=== PATIENT | male | born 1985 | race Caucasian/White ===

== ENCOUNTER 2021-02-26 20:28 | Emergency (ER) | payer BC, SELFPAY ==
--- NOTE | 2021-02-26 20:36 | ECG_ITS ---
[facility] Test Date: 2021-02-26 Pat Name: Mckinley Johns Department: Room: Gender: Male Gate Watchman: : 1985 Requested By: Cristy Pearson Order Number: [id number] Ralf MD: Mushtaq Drew M.D. Measurements Intervals [place] Rate: 57 P: 42 AR: 139 QRS: 77 QRSD: 100 T: 63 QT: 409 QTc: 399 Interpretive Statements SINUS BRADYCARDIA WITH SINUS ARRHYTHMIA POSSIBLE RIGHT VENTRICULAR CONDUCTION DELAY [RSR (QR) IN V1/V2] No previous ECG available for comparison Electronically Signed On 02-28-2021 17:13:10 CDT by Mushtaq Drew M.D. [id number]
--- NOTE | 2021-02-26 20:36 | XRR_ITS ---
PROCEDURE INFORMATION: Exam: XR Chest Exam date and time: 02/26/2021 8:36 PM Age: 35 years old Clinical indication: Sternal or substernal pain; Additional info: Chest pain TECHNIQUE: Imaging protocol: XR of the chest. Views: 1 view. COMPARISON: No relevant prior studies available. FINDINGS: Lungs: Lungs are clear bilaterally. Calcified granuloma in the the left midlung. Pleural spaces: No pleural effusion. No pneumothorax. Heart/Mediastinum: The cardiac silhouette and mediastinal contours are unremarkable. Bones/joints: Unremarkable for age. XR/XR chest 1V portable [id number] IMPRESSION: 1. No acute cardiopulmonary process. 2. Calcified granuloma in the the left midlung. Radiation Dose CTDIVOL = (mGy): DLP = (mGy-cm)
[2021-02-26 20:40] VITALS: BP 114/75; PULSE 72; RESP 20; TEMP 36.6; BMI 20.7
[2021-02-26 20:58] LABS: Basophils % 0.3 %; Eosinophils # 0.1 10^3/uL (0.0-0.8); Eosinophils % 0.6 %; Hematocrit 44.8 % (42.0-52.0); Hemoglobin 15.9 g/dL (11.7-16.6); Lymphocytes # 1.1 10^3/uL (0.8-4.8); Lymphocytes % 8.9 %; Mean Corpuscular HGB Conc 35.5 g/dL (30.0-36.0); Mean Corpuscular Hemoglobin 30.3 pg (28.0-34.0); Mean Corpuscular Volume 85.3 fl (80-94); Mean Platelet Volume 8.5 fL (7.4-10.4); Monocytes # 0.6 10^3/uL (0.2-0.9); Monocytes % 4.6 %; Neutrophils # 10.38 10^3/uL (1.8-7.7); Neutrophils % 85.3 %; Nucleated Red Blood Cells % 0 %; Platelet Count 225 10^3/cmm (130-400); Red Blood Count 5.25 10^6/uL (4.1-5.3); Red Cell Distribution Width 11.8 % (12.1-15.1); White Blood Count 12.2 10^3/uL (4.0-10.0)
--- NOTE | 2021-02-26 21:07 | W.ED.CHESTPA ---
Documented by User: LEODAN Rosa 02/26/21 22:17 HPI - Chest Pain General: Chief Complaint: Chest Pain Stated Complaint: cp Time Seen by Provider: 02/26/21 20:30 Source: patient and family () Mode of arrival: ambulatory Limitations: no limitations History of Present Illness: HPI narrative: Patient is a 35-year-old male who presents to ED today along with his for evaluation of chest pain that began around noon today. Patient states pain began gradually and reached maximum intensity at 10/10. When asked specifically where he was experiencing discomfort he points to his epigastric region. He treated with Tums and Puja-Quartzsite without relief. There was no radiation to his discomfort. He denies feeling nauseous. No episodes of vomiting. He does not complain of back pain. does state he got a little diaphoretic. No cough, SOB, or neck pain/dysphagia. states he was tearful secondary to discomfort which is extremely unlike him. Patient is an otherwise healthy male. He takes no medications. He has no family history of cardiac disease. Patient currently rating his pain at a 3/10. MD complaint: chest pain (epigastric pain) Onset (ago): hour(s) Timing of current episode: constant Prior episodes: No Pain location: epigastric Pain radiation: none Severity: severe Pain scale (0-10): 10 Relieving factors: nothing Exacerbating factors: nothing Associated symptoms: Reports abdominal pain; Deny dyspnea, fever(s), nausea, palpitations, syncope or vomiting Risk Factors: Coronary artery disease risk factors: smoking history (occasional smoker ) Thoracic aortic dissection risk factors: none Review of Systems Const: Denies: fever(s), chills, body aches, fatigue or malaise Eyes: Denies: change in vision ENMT: Denies: throat pain or odynophagia Card: Reports: chest pain and dyspnea on exertion (chronic/years); Denies: palpitations, irregular heart rhythm, edema, swelling of feet/ankles, lightheadedness, syncope, pre-syncope, orthopnea, leg pain with exertion or acrocyanosis Resp: Denies: dyspnea, productive cough, non-productive cough, wheezing, pain on inspiration, hemoptysis or chest congestion GI: Reports: abdominal pain; Denies: nausea, vomiting, diarrhea or change in bowel habits : Denies: flank pain, dysuria, urinary urgency or hematuria Musc: Denies: neck pain or back pain Skin/Breast: Denies: rash Neuro: Denies: headache(s) or dizziness Physical Exam Const: COMMON NORMALS: no acute distress, average body habitus, patient oriented x3, no limitations, healthy appearing, alert and well nourished GENERAL APPEARANCE: cooperative ORIENTATION/CONSCIOUSNESS: Yes awake, Yes oriented to person, Yes oriented to place and Yes oriented to time HENMT: COMMON NORMALS: normocephalic and atraumatic HEAD & SCALP: normal to inspection, normocephalic and atraumatic Chest: COMMONS NORMALS: normal inspection of the chest and normal palpation of entire chest wall Resp: COMMON NORMALS: normal respiratory effort and clear to auscultation bilaterally AUSCULTATION: clear to auscultation bilaterally Cardio: COMMON NORMALS: regular rate and regular rhythm RATE: regular rate RHYTHM: regular rhythm GI: COMMON NORMALS: Normal to inspection, nondistended, normoactive bowel sounds present, Soft to palpation, No hepatosplenomegaly present and no masses PALPATION: Yes Soft to palpation, Yes Tenderness to palpation present (GI) (epigastric) and Yes No hepatosplenomegaly present : COMMON NORMALS: Yes no CVA tenderness BLADDER/KIDNEY EXAM: Yes no CVA tenderness Back/Pelvis: COMMON NORMALS: no CVA tenderness, thoracic and lumbar spine normal to inspection, no thoracic nor lumbar tenderness and thoraco-lumbar ROM normal Extremity: COMMON NORMALS: normal to inspection, no joint enlargement, no clubbing, cyanosis or edema, no calf tenderness and no pedal edema Neuro: RENE COMA SCALE: document GCS findings COMMON NORMALS: patient oriented x3 SENSORIUM/ORIENTATION: Yes alert, Yes oriented to person, Yes oriented to place and Yes oriented to time Skin: COMMON NORMALS: no rashes or lesions noted GENERAL SKIN EXAM: no rashes or lesions noted Course Vital Signs: Vital signs: Vital Signs Temperature 97.9 F 02/26/21 20:40 Pulse Rate 72 02/26/21 20:40 Respiratory Rate 20 H 02/26/21 20:40 Blood Pressure 114/75 02/26/21 20:40 MDM - Chest Pain MDM Narrative: Medical decision making narrative: Care initiated. TERRY of 2 so will transfer care to Dr. Wang. Lab Data: Labs: Lab Results 02/26/21 02/26/21 02/26/21 20:53 20:53 20:53 WBC 12.2 10^3/uL H 10 ^3/uL (4.0-10.0) RBC 5.25 10^6/uL 10^6 /uL (4.1-5.3) Hgb 15.9 g/dL g/dL (11.7-16.6) Hct 44.8 % % (42.0-52.0) MCV 85.3 fl fl (80-94) MCH 30.3 pg pg (28.0-34.0) MCHC 35.5 g/dL g/dL (30.0-36.0) RDW 11.8 % L % (12.1-15.1) Plt Count 225 10^3/cmm 10^3 /cmm (130-400) MPV 8.5 fL fL (7.4-10.4) Neut % (Auto) 85.3 % % Lymph % (Auto) 8.9 % % [place] % (Auto) 4.6 % % Eos % (Auto) 0.6 % % Baso % (Auto) 0.3 % % Neut # (Auto) 10.38 10^3/uL H 1 0^3/uL (1.8-7.7) Lymph # (Auto) 1.1 10^3/uL 10^3/ uL (0.8-4.8) [place] # (Auto) 0.6 10^3/uL 10^3/ uL (0.2-0.9) Eos # (Auto) 0.1 10^3/uL 10^3/ uL (0.0-0.8) Baso # (Auto) 0.0 10^3/uL 10^3/ uL (0.0-0.1) Nucleated RBC % (a uto) 0 % % Nucleated RBCs # 0.0 /100WBC /100W BC D-Dimer Sodium 137 mmol/L mmol/L (136-145) Potassium 3.7 mmol/L mmol/L (3.5-5.1) Chloride 98 mmol/L mmol/L (98-107) Carbon Dioxide 28 mmol/L mmol/L (22-29) Anion Gap 14.7 (5-19) BUN 12 mg/dL mg/dL (6-20) Creatinine 0.8 mg/dL mg/dL (0.7-1.2) GFR Calculation 108.8 mL/min mL/m in (90-130) Glucose 103 mg/dL mg/dL (65-115) Calculated Osmolal ity 284 mOsm/kg L mOs m/kg (285-295) Calcium 10.0 mg/dL mg/dL (8.5-10.5) Total Bilirubin 0.8 mg/dL mg/dL (0.15-1.2) AST 18 U/L U/L (0-40) ALT 18 U/L U/L (0-41) Alkaline Phosphata se 62 IU/L IU/L (40-130) Troponin T Baselin e 6 ng/L ng/L (0-15) Troponin T 120 Min [place] Troponin T Total Protein 7.5 g/dL g/dL (6.6-8.7) Albumin 4.7 g/dL g/dL (3.5-5.2) Globulin 2.8 g/dL g/dL (1.3-4.6) Lipase 38 U/L U/L (13-60) 02/26/21 02/26/21 20:53 22:35 WBC RBC Hgb Hct MCV MCH MCHC RDW Plt Count MPV Neut % (Auto) Lymph % (Auto) [place] % (Auto) Eos % (Auto) Baso % (Auto) Neut # (Auto) Lymph # (Auto) [place] # (Auto) Eos # (Auto) Baso # (Auto) Nucleated RBC % (a uto) Nucleated RBCs # D-Dimer 5.86 ug/mIFEU H u g/mIFEU (0-0.59) Sodium Potassium Chloride Carbon Dioxide Anion Gap BUN Creatinine GFR Calculation Glucose Calculated Osmolal ity Calcium Total Bilirubin AST ALT Alkaline Phosphata se Troponin T Baselin e Troponin T 120 Min [place] 6.00 ng/L ng/L (0-15) Delta Troponin T 0 ABS# ABS# (0-10) Total Protein Albumin Globulin Lipase Imaging Data^: CXR: Radiologist's impression: [address] [address] XRay Report Signed Patient: Mckinley Johns Unit #: [id number] : 1985 Age/Sex: 35 / M ADM Date: 02/26/21 Loc: ER Room/Bed: Attending Dr: Ordering Provider/Ordering MD: Cristy Pearson Date of Service: 02/26/21 Procedure(s): XR chest 1V portable [id number] Accession Number(s): [id number] Report Number: [id number] PROCEDURE INFORMATION: Exam: XR Chest Exam date and time: 02/26/2021 8:36 PM Age: 35 years old Clinical indication: Sternal or substernal pain; Additional info: Chest pain TECHNIQUE: Imaging protocol: XR of the chest. Views: 1 view. COMPARISON: No relevant prior studies available. FINDINGS: Lungs: Lungs are clear bilaterally. Calcified granuloma in the the left midlung. Pleural spaces: No pleural effusion. No pneumothorax. Heart/Mediastinum: The cardiac silhouette and mediastinal contours are unremarkable. Bones/joints: Unremarkable for age. XR/XR chest 1V portable [id number] IMPRESSION: 1. No acute cardiopulmonary process. 2. Calcified granuloma in the the left midlung. Radiation Dose CTDIVOL = (mGy): DLP = (mGy-cm) Dictated By: Mia Mendosa MD Signed By: Mia Mendosa MD Signed Date/Time: 02/26/212146 DD/ 35 Discharge Plan Discharge Patient Disposition: Home Clinical Impression: Chest pain Qualifiers: Chest pain type: unspecified Qualified Code(s): R07.9 - Chest pain, unspecified Abdominal pain Qualifiers: Abdominal location: epigastric Qualified Code(s): R10.13 - Epigastric pain Condition: Stable Prescriptions: New Protonix 40 mg tablet,delayed release (DR/EC) 40 mg PO DAILY Qty: 60 RF: 0 Discharge Orders: Discharge ED (Routine); Ordered 02/26/21 Ordered By: Zulay Wang Discharge Diet: Advance as tolerated Discharge Activity: Resume usual activity Patient Instructions: Chest Pain (ED), Abdominal Pain (ED) Coding Level of Care Code ED Film Cleaner for Chg Fwd Exam Comprehensive Documented by User: Zulay Wang MD 02/26/21 23:01 HPI - Chest Pain General: Chief Complaint: Chest Pain Stated Complaint: cp Time Seen by Provider: 02/26/21 20:30 Course Vital Signs: Vital signs: Vital Signs Temperature 97.9 F 02/26/21 20:40 Pulse Rate 72 02/26/21 20:40 Respiratory Rate 20 H 02/26/21 20:40 Blood Pressure 114/75 02/26/21 20:40 MDM - Chest Pain MDM Narrative: Medical decision making narrative: Patient presents with chest pains atypical in nature likely gastritis more epigastric abdominal pain in nature that was resolved with GI cocktail patient CT and blood work is normal no signs of acute coronary syndrome we will place him on Prilosec he is to follow-up with PCP and return if worsening. Lab Data: Labs: Lab Results 02/26/21 02/26/21 02/26/21 20:53 20:53 20:53 WBC 12.2 10^3/uL H 10 ^3/uL (4.0-10.0) RBC 5.25 10^6/uL 10^6 /uL (4.1-5.3) Hgb 15.9 g/dL g/dL (11.7-16.6) Hct 44.8 % % (42.0-52.0) MCV 85.3 fl fl (80-94) MCH 30.3 pg pg (28.0-34.0) MCHC 35.5 g/dL g/dL (30.0-36.0) RDW 11.8 % L % (12.1-15.1) Plt Count 225 10^3/cmm 10^3 /cmm (130-400) MPV 8.5 fL fL (7.4-10.4) Neut % (Auto) 85.3 % % Lymph % (Auto) 8.9 % % [place] % (Auto) 4.6 % % Eos % (Auto) 0.6 % % Baso % (Auto) 0.3 % % Neut # (Auto) 10.38 10^3/uL H 1 0^3/uL (1.8-7.7) Lymph # (Auto) 1.1 10^3/uL 10^3/ uL (0.8-4.8) [place] # (Auto) 0.6 10^3/uL 10^3/ uL (0.2-0.9) Eos # (Auto) 0.1 10^3/uL 10^3/ uL (0.0-0.8) Baso # (Auto) 0.0 10^3/uL 10^3/ uL (0.0-0.1) Nucleated RBC % (a uto) 0 % % Nucleated RBCs # 0.0 /100WBC /100W BC D-Dimer Sodium 137 mmol/L mmol/L (136-145) Potassium 3.7 mmol/L mmol/L (3.5-5.1) Chloride 98 mmol/L mmol/L (98-107) Carbon Dioxide 28 mmol/L mmol/L (22-29) Anion Gap 14.7 (5-19) BUN 12 mg/dL mg/dL (6-20) Creatinine 0.8 mg/dL mg/dL (0.7-1.2) GFR Calculation 108.8 mL/min mL/m in (90-130) Glucose 103 mg/dL mg/dL (65-115) Calculated Osmolal ity 284 mOsm/kg L mOs m/kg (285-295) Calcium 10.0 mg/dL mg/dL (8.5-10.5) Total Bilirubin 0.8 mg/dL mg/dL (0.15-1.2) AST 18 U/L U/L (0-40) ALT 18 U/L U/L (0-41) Alkaline Phosphata se 62 IU/L IU/L (40-130) Troponin T Baselin e 6 ng/L ng/L (0-15) Troponin T 120 Min [place] Troponin T Total Protein 7.5 g/dL g/dL (6.6-8.7) Albumin 4.7 g/dL g/dL (3.5-5.2) Globulin 2.8 g/dL g/dL (1.3-4.6) Lipase 38 U/L U/L (13-60) 02/26/21 02/26/21 20:53 22:35 WBC RBC Hgb Hct MCV MCH MCHC RDW Plt Count MPV Neut % (Auto) Lymph % (Auto) [place] % (Auto) Eos % (Auto) Baso % (Auto) Neut # (Auto) Lymph # (Auto) [place] # (Auto) Eos # (Auto) Baso # (Auto) Nucleated RBC % (a uto) Nucleated RBCs # D-Dimer 5.86 ug/mIFEU H u g/mIFEU (0-0.59) Sodium Potassium Chloride Carbon Dioxide Anion Gap BUN Creatinine GFR Calculation Glucose Calculated Osmolal ity Calcium Total Bilirubin AST ALT Alkaline Phosphata se Troponin T Baselin e Troponin T 120 Min [place] 6.00 ng/L ng/L (0-15) Delta Troponin T 0 ABS# ABS# (0-10) Total Protein Albumin Globulin Lipase Imaging Data^: CXR: Attestation: I personally reviewed and interpreted this imaging study as follows: My impression: no acute abnormality CT Chest: Attestation: I personally reviewed and interpreted this imaging study as follows: Radiologist's impression: [address] [address] [address] Scan Report Signed Patient: Mckinley Johns Unit #: [id number] : 1985 Age/Sex: 35 / M ADM Date: 02/26/21 Loc: ER Room/Bed: Attending Dr: Ordering Provider/Ordering MD: Zulay Wang MD Date of Service: 02/26/21 Procedure(s): CT angio chest w abd pel w con Accession Number(s): [id number] Report Number: [id number] PROCEDURE INFORMATION: Exam: CTA Chest With Contrast Exam date and time: 02/26/2021 9:23 PM Age: 35 years old Clinical indication: Abdominal pain; Other: Lower chest pain/ upper abd pain; Sternal or substernal pain; Additional info: Cp TECHNIQUE: Imaging protocol: Computed tomographic angiography of the chest with contrast. 3D rendering (Not supervised by radiologist): MIP and/or 3D reconstructed images were created by the technologist. Radiation optimization: All CT scans at this facility use at least one of these dose optimization techniques: automated exposure control; mA and/or kV adjustment per patient size (includes targeted exams where dose is matched to clinical indication); or iterative reconstruction. Contrast material: OMNI 350; Contrast volume: 95 ml; Contrast route: INTRAVENOUS (IV); COMPARISON: CR (CHEST, ) 02/26/2021 8:55 PM RADIATION DOSE METRICS: Total DLP (mGy-cm): 962.55 FINDINGS: Pulmonary arteries: No filling defects in the pulmonary arteries to suggest pulmonary embolism. Aorta: No evidence for aortic aneurysm. Evaluation for aortic dissection is limited due to the phase of contrast-enhancement. Lungs: Tracheobronchial structures are patent. Lungs are clear bilaterally. Calcified granulomas scattered in both lungs. Pleural spaces: No pneumothorax. No pleural effusion. Heart: No cardiomegaly. No pericardial effusion. Mediastinal space: The esophagus is unremarkable. Lymph nodes: No lymphadenopathy. Calcified lymph nodes in the left hilum. Bones/joints: No acute fracture. Soft tissues: The extrathoracic soft tissues are unremarkable. IMPRESSION: 1. No evidence for pulmonary embolism. 2. No acute cardiopulmonary process. 3. Granulomatous changes in the chest. PROCEDURE INFORMATION: Exam: CT Abdomen And Pelvis With Contrast Exam date and time: 02/26/2021 9:23 PM Age: 35 years old Clinical indication: Abdominal pain; Other: Lower chest pain/ upper abd pain; Sternal or substernal pain; Additional info: Cp TECHNIQUE: Imaging protocol: Computed tomography of the abdomen and pelvis with contrast. Sagittal and coronal reformatted images were created and reviewed. Radiation optimization: All CT scans at this facility use at least one of these dose optimization techniques: automated exposure control; mA and/or kV adjustment per patient size (includes targeted exams where dose is matched to clinical indication); or iterative reconstruction. Contrast material: OMNI 350; Contrast volume: 95 ml; Contrast route: INTRAVENOUS (IV); COMPARISON: CR (CHEST, ) 02/26/2021 8:55 PM RADIATION DOSE METRICS: Total DLP (mGy-cm): 962.55 FINDINGS: Liver: Hypodense multicystic subcapsular focus in the anterior left lobe of the liver that cannot be further characterized on the current examination. This measures 1.1 x 1.6 cm (series 3, image 16). Gallbladder and bile ducts: The gallbladder is unremarkable. No biliary ductal dilatation. Pancreas: The pancreas is unremarkable. No pancreatic ductal dilatation. Spleen: The spleen is unremarkable. Adrenal glands: The right and left adrenal glands are unremarkable. Kidneys and ureters: The right and left kidneys are unremarkable. The right and left ureters are unremarkable. Stomach and bowel: No acute abnormality in the stomach. Fluid within the small bowel without evidence of bowel wall thickening. No acute abnormality in the colon. Appendix: The appendix is visualized and is unremarkable. No findings to suggest acute appendicitis. Intraperitoneal space: No free intraperitoneal air. No ascites. No loculated fluid collections to suggest an abscess. Vasculature: No evidence for aortic aneurysm or aortic dissection. Hepatic veins, portal veins, splenic vein, and SMV are patent. Lymph nodes: No lymphadenopathy. Urinary bladder: Unremarkable as visualized. Reproductive: Unremarkable as visualized. Bones/joints: Bone islands in the visualized left femur and in the pelvis. There is a transitional vertebra at the lumbosacral junction. This is designated as L5. Soft tissues: The extra-abdominal soft tissues are unremarkable. CT/CT angio chest w abd pel w con IMPRESSION: 1. Fluid within the small bowel without evidence of bowel wall thickening. This may reflect viral gastroenteritis in the appropriate clinical situation. 2. Hypodense subcapsular focus in the anterior left lobe of the liver that cannot be further characterized on the current examination. ForFurther evaluation with non-emergent liver MRI is recommended. 3. Incidental/nonacute findings are listed in the report. Radiation Dose CTDIVOL = (mGy): DLP = 962.55 962.55 (mGy-cm) Dictated By: Mia Mendosa MD Signed By: Mia Mendosa MD Signed Date/Time: 02/26/21 2219 EKG Data^: EKG 1: Attestation: I personally reviewed and interpreted this EKG as follows: EKG interpretation date: 02/26/21 EKG interpretation time: 20:37 Interpretation: nsr hr [address] or t wave abnormalities qrs 95 qtc 397 EKG 2: Attestation: I personally reviewed and interpreted this EKG as follows: EKG interpretation date: 02/26/21 EKG interpretation time: 22:36 Interpretation: sinus ruthy hr [address] or t wave abnormalities qrs 100 qtc 403 Discharge Plan Discharge Patient Disposition: Home Clinical Impression: Chest pain Qualifiers: Chest pain type: unspecified Qualified Code(s): R07.9 - Chest pain, unspecified Abdominal pain Qualifiers: Abdominal location: epigastric Qualified Code(s): R10.13 - Epigastric pain Condition: Stable Prescriptions: New Protonix 40 mg tablet,delayed release (DR/EC) 40 mg PO DAILY Qty: 60 RF: 0 Discharge Orders: Discharge ED (Routine); Ordered 02/26/21 Ordered By: Zulay Wang Discharge Diet: Advance as tolerated Discharge Activity: Resume usual activity Patient Instructions: Chest Pain (ED), Abdominal Pain (ED) Coding Level of Care Code ED Film Cleaner for Fabiog Fwd Exam Comprehensive
[2021-02-26] MEDS: lidocaine 2% viscous 15 ML, aluminum-mag hydrox-simethicon 30 ML, sucralfate oral liq 1 GM PO (21:10)
[2021-02-26 21:20] LABS: Troponin(5th) Baseline 6 ng/L (0-15)
[2021-02-26 21:22] LABS: D Dimer 5.86 ug/mIFEU (0-0.59)
[2021-02-26 21:23] LABS: Alanine Aminotransferase 18 U/L (0-41); Albumin Level 4.7 g/dL (3.5-5.2); Alkaline Phosphatase 62 IU/L (40-130); Anion Gap 14.7 (5-19); Aspartate Amino Transferase 18 U/L (0-40); Blood Urea Nitrogen 12 mg/dL (6-20); Carbon Dioxide 28 mmol/L (22-29); Chloride 98 mmol/L (98-107); Globulin 2.8 g/dL (1.3-4.6); Glomerular Filtration Rate 108.8 mL/min (90-130); Glucose 103 mg/dL (65-115); Lipase 38 U/L (13-60); Osmolality Calculated 284 mOsm/kg (285-295); Potassium 3.7 mmol/L (3.5-5.1); Sodium 137 mmol/L (136-145); Total Bilirubin 0.8 mg/dL (0.15-1.2); Total Protein 7.5 g/dL (6.6-8.7)
--- NOTE | 2021-02-26 21:23 | CTR_ITS ---
PROCEDURE INFORMATION: Exam: CTA Chest With Contrast Exam date and time: 02/26/2021 9:23 PM Age: 35 years old Clinical indication: Abdominal pain; Other: Lower chest pain/ upper abd pain; Sternal or substernal pain; Additional info: Cp TECHNIQUE: Imaging protocol: Computed tomographic angiography of the chest with contrast. 3D rendering (Not supervised by radiologist): MIP and/or 3D reconstructed images were created by the technologist. Radiation optimization: All CT scans at this facility use at least one of these dose optimization techniques: automated exposure control; mA and/or kV adjustment per patient size (includes targeted exams where dose is matched to clinical indication); or iterative reconstruction. Contrast material: OMNI 350; Contrast volume: 95 ml; Contrast route: INTRAVENOUS (IV); COMPARISON: CR (CHEST, ) 02/26/2021 8:55 PM RADIATION DOSE METRICS: Total DLP (mGy-cm): 962.55 FINDINGS: Pulmonary arteries: No filling defects in the pulmonary arteries to suggest pulmonary embolism. Aorta: No evidence for aortic aneurysm. Evaluation for aortic dissection is limited due to the phase of contrast-enhancement. Lungs: Tracheobronchial structures are patent. Lungs are clear bilaterally. Calcified granulomas scattered in both lungs. Pleural spaces: No pneumothorax. No pleural effusion. Heart: No cardiomegaly. No pericardial effusion. Mediastinal space: The esophagus is unremarkable. Lymph nodes: No lymphadenopathy. Calcified lymph nodes in the left hilum. Bones/joints: No acute fracture. Soft tissues: The extrathoracic soft tissues are unremarkable. IMPRESSION: 1. No evidence for pulmonary embolism. 2. No acute cardiopulmonary process. 3. Granulomatous changes in the chest. PROCEDURE INFORMATION: Exam: CT Abdomen And Pelvis With Contrast Exam date and time: 02/26/2021 9:23 PM Age: 35 years old Clinical indication: Abdominal pain; Other: Lower chest pain/ upper abd pain; Sternal or substernal pain; Additional info: Cp TECHNIQUE: Imaging protocol: Computed tomography of the abdomen and pelvis with contrast. Sagittal and coronal reformatted images were created and reviewed. Radiation optimization: All CT scans at this facility use at least one of these dose optimization techniques: automated exposure control; mA and/or kV adjustment per patient size (includes targeted exams where dose is matched to clinical indication); or iterative reconstruction. Contrast material: OMNI 350; Contrast volume: 95 ml; Contrast route: INTRAVENOUS (IV); COMPARISON: CR (CHEST, ) 02/26/2021 8:55 PM RADIATION DOSE METRICS: Total DLP (mGy-cm): 962.55 FINDINGS: Liver: Hypodense multicystic subcapsular focus in the anterior left lobe of the liver that cannot be further characterized on the current examination. This measures 1.1 x 1.6 cm (series 3, image 16). Gallbladder and bile ducts: The gallbladder is unremarkable. No biliary ductal dilatation. Pancreas: The pancreas is unremarkable. No pancreatic ductal dilatation. Spleen: The spleen is unremarkable. Adrenal glands: The right and left adrenal glands are unremarkable. Kidneys and ureters: The right and left kidneys are unremarkable. The right and left ureters are unremarkable. Stomach and bowel: No acute abnormality in the stomach. Fluid within the small bowel without evidence of bowel wall thickening. No acute abnormality in the colon. Appendix: The appendix is visualized and is unremarkable. No findings to suggest acute appendicitis. Intraperitoneal space: No free intraperitoneal air. No ascites. No loculated fluid collections to suggest an abscess. Vasculature: No evidence for aortic aneurysm or aortic dissection. Hepatic veins, portal veins, splenic vein, and SMV are patent. Lymph nodes: No lymphadenopathy. Urinary bladder: Unremarkable as visualized. Reproductive: Unremarkable as visualized. Bones/joints: Bone islands in the visualized left femur and in the pelvis. There is a transitional vertebra at the lumbosacral junction. This is designated as L5. Soft tissues: The extra-abdominal soft tissues are unremarkable. CT/CT angio chest w abd pel w con IMPRESSION: 1. Fluid within the small bowel without evidence of bowel wall thickening. This may reflect viral gastroenteritis in the appropriate clinical situation. 2. Hypodense subcapsular focus in the anterior left lobe of the liver that cannot be further characterized on the current examination. ForFurther evaluation with non-emergent liver MRI is recommended. 3. Incidental/nonacute findings are listed in the report. Radiation Dose CTDIVOL = (mGy): DLP = 962.55~962.55 (mGy-cm)
[2021-02-26] MEDS: iohexol 350 mg/mL 100 mL Btl IV (21:40)
--- NOTE | 2021-02-26 22:36 | ECG_ITS ---
[facility] Test Date: 2021-02-26 Pat Name: Mckinley Johns Department: Room: Gender: Male [employer]: : [id number] Requested By: Cristy Pearson Order Number: [id number] Arambula MD: Mushtaq Drew M.D. Measurements Intervals [place] Rate: 66 P: 54 NM: 126 QRS: 87 QRSD: 95 T: 87 QT: 384 QTc: 403 Interpretive Statements SINUS RHYTHM POSSIBLE RIGHT VENTRICULAR CONDUCTION DELAY [RSR (QR) IN V1/V2] MODERATE ST DEPRESSION [0.05+ mV ST DEPRESSION] No previous ECG available for comparison Electronically Signed On 02-28-2021 17:18:23 CDT by Mushtaq Drew M.D. [id number]
[2021-02-26 22:55] LABS: Troponin 5 2HR Delta 0 ABS# (0-10)
[2021-02-26 23:09] VITALS: BP 130/74; PULSE 64; RESP 16; O2SAT 99
== END 2021-02-26 23:10 | disposition home or self-care (01) ==
PROVIDERS: Physician Assistant; Emergency Provider Emergency Medicine
DX: R10.13 Epigastric pain (principal); R07.9 Chest pain, unspecified; F17.200 Nicotine dependence, unspecified, uncomplicated
CPT/HCPCS: 71045; 71275; 74177; 80053; 83690; 84484; 85025; 85378; 93005; 99283; Q9967